=== PATIENT | female | born 1955 | race Caucasian/White ===

== ENCOUNTER 2021-04-30 09:50 | Day surgery (SDCO) | payer MEDICARE, OTHER ==
[~2021-04-30] VITALS: Ht 167.6 cm; Wt 106.7 kg
[~2021-04-30 09:50] MED LIST: DUONEB 2.5-0.5M1 AMP NEB; FLONASE ALLER15.8 ML; IBUPROFEN800 MG PO; NORCO 5-325 TA1 EACH PO; XARELTO10 MG PO; XARELTO15 MG PO
[2021-04-30 11:39] LABS: BASOPHIL 0.3 % (0-2); EOSINOPHIL 0.3 % (0-7); HCT 43.8 % (37.0-47.0); HGB 14.5 g/dl (12.5-16.0); LYMPHOCYTE 21.1 % (15-48); MCH 29.6 pg (25.0-31.0); MCHC 33.1 g/dL (32.0-36.0); MCV 89.4 fL (78.0-100.0); MONOCYTE 6.7 % (0-12); MPV 9.6 fL (6.0-9.5); NEUTROPHIL 71.3 % (41-80); NRBC 0; PLT 123 K/uL (150-400); RDW 13.2 % (11.5-14.0)
[2021-04-30 12:02] LABS: ALBUMIN 3.2 g/dL (3.4-5.0); BILIRUBIN - TOTAL 0.9 mg/dL (0.2-1.0); BUN/CREAT RATIO (CALC) 12.1 RATIO; CREATININE 0.66 mg/dL (0.51-0.95); GLOBULIN (CALCULATION) 3.4 g/dL; POTASSIUM 4.4 mmol/L (3.5-5.1); TOTAL PROTEIN 6.6 g/dL (6.4-8.2)
[2021-04-30 12:23] LABS: LACTIC ACID 1.2 mmol/L (0.4-1.9)
[2021-04-30 12:38] LABS: INFLUENZA A NAA NEGATIVE (NEGATIVE)
[2021-04-30 12:41] LABS: CORONAVIRUS 2019 SARS-COV-2 POSITIVE (NEGATIVE)
[2021-04-30] MEDS ORDERED: ANORO ELLIPTA1 EACH PO (18:28)
[2021-04-30] MEDS ORDERED: PROAIR HFA8.5 GM INH (18:29)
[2021-04-30 23:49] LABS: BILIRUBIN 1+ mg/dL (NEGATIVE); BLOOD 1+ Ery/uL (NEGATIVE); COLOR YELLOW (YELLOW); GLUCOSE (U) NORMAL (NORMAL); LEUKOCYTES NEGATIVE Leu/uL (NEGATIVE); NITRITE NEGATIVE (NEGATIVE); PROTEIN TRACE (LOW) mg/dL (NEGATIVE); UROBILINOGEN 0.2 mg/dL (0.2-1.0); pH 6.5 (5.0-9.0)
[2021-04-30 23:56] LABS: CLARITY SLIGHTLY HAZY (CLEAR)
[2021-04-30 23:58] LABS: BACTERIA TRACE; URINARY WBC RARE
[2021-05-01 06:16] LABS: BASOPHIL 0 % (0-2); EOSINOPHIL 0 % (0-7); HCT 41.5 % (37.0-47.0); HGB 13.8 g/dl (12.5-16.0); LYMPHOCYTE 22.1 % (15-48); MCH 29.7 pg (25.0-31.0); MCHC 33.3 g/dL (32.0-36.0); MCV 89.4 fL (78.0-100.0); MONOCYTE 7.7 % (0-12); MPV 9.6 fL (6.0-9.5); NEUTROPHIL 69.8 % (41-80); NRBC 0; PLT 130 K/uL (150-400); RBC 4.64 M/uL (4.20-5.40); RDW 13.2 % (11.5-14.0); WBC 2.4 K/uL (4.0-10.5)
[2021-05-01 06:47] LABS: CREATININE 0.68 mg/dL (0.51-0.95); POTASSIUM 3.5 mmol/L (3.5-5.1)
[2021-05-01 07:26] LABS: BUN/CREAT RATIO (CALC) 10.3 RATIO
[2021-05-01] MEDS ORDERED: DECADRON6 MG PO (13:39)
--- NOTE | 2021-05-01 14:06 | NUR ---
05/01 Ms. Scott lives alone. However, her son is staying in the home while she recuperates. [email or web address] Scott has a rw and cane. A referral was made to [facility] for .
== END 2021-05-01 16:08 | disposition home or self-care (01) ==
LOC: FER 09:50 → FOFB 14:40 → FMS 14:40
PROVIDERS: Emergency Medicine; ADMIT Internal Medicine
DX: K42.9 Umbilical hernia without obstruction or gangrene (principal); U07.1 COVID-19; J44.1 Chronic obstructive pulmonary disease with (acute) exacerbation; E66.01 Morbid (severe) obesity due to excess calories; E27.8 Other specified disorders of adrenal gland; J96.01 Acute respiratory failure with hypoxia; N28.1 Cyst of kidney, acquired; K57.30 Diverticulosis of large intestine without perforation or abscess without bleeding; Z90.49 Acquired absence of other specified parts of digestive tract; Z98.51 Tubal ligation status; Z63.5 Disruption of family by separation and divorce; Z87.891 Personal history of nicotine dependence; Z68.37 Body mass index [BMI] 37.0-37.9, adult
CPT/HCPCS: 36415; 36600; 71275; 80048; 80053; 81001; 82728; 82803; 83605; 83690; 84145; 85025; 87040; 87088; 94640; 94762; G0378; J1100; J1650; J2270; J2405; J7040; Q9967; U0002